=== PATIENT | male | born 1995 | race Caucasian/White ===

== ENCOUNTER 2021-01-24 15:11 | Emergency (ER) | payer BC, OTHER ==
--- OUTSIDE RECORDS SUMMARY | 2021-01-24 15:13 | XMS REPORT | Continuity of Care Document ---
:1995 Author Organization [facility] t Address [address] [place] [address] [address] [place] [address] Care Team Providers Name Role Phone Unavailable Unavailable Unavailable Problems This patient has no known problems. Allergies, Adverse Reactions, Alerts This patient has no known allergies or adverse reactions. Medications This patient has no known medications. Procedures This patient has no known procedures. Results This patient has no known results.
[2021-01-24] MEDS ORDERED: SMZ./TMP. 800/160 MG TABLET ONE (17:38)
[2021-01-24] MEDS ORDERED: DOXYCYCLINE 100 MG CAP PO ONE (17:38)
--- NOTE | 2021-01-24 17:45 | RAD REPORT ---
EXAM DESCRIPTION: US - Extremity Venous Uni Ltd - 01/24/2021 5:29 pm CLINICAL HISTORY: PAIN, right lower extremity COMPARISON: None. TECHNIQUE: Real-time sonographic evaluation of the right lower extremity deep venous systems was per formed. FINDINGS: Normal compressibility, flow augmentation, phasic flow and spontaneous flow are identified in the right lower extremity common femoral, superficial femoral, popliteal and posterior tibial vei ns. No intraluminal filling defects seen. IMPRESSION: No DVT in the right lower extremity.
--- NOTE | 2021-01-24 19:08 | ER ---
Nurse's Notes [facility] Name: Lei Godfrey Age: 26 yrs Sex: Male : 1995 Arrival Date: 01/24/2021 Time: 15:15 Bed 8 Private MD: Radha Mccoy K Diagnosis: Cellulitis of the thigh Presentation: 01/24 15:18 Chief complaint: Patient states: RLE redness, swelling for 3 days. No fever, hot to ll1 touch RLE. No drainage. States he went to [place] yesterday. Given a shot and antibiotics, states the site looks worse today. Coronavirus screen: Client denies travel out of the [place] in the last 14 days. At this time, the client does not indicate any symptoms associated with coronavirus-19. Ebola Screen: Patient denies travel to an Ebola-affected area in the 21 days before illness onset. Initial Sepsis Screen: Does the patient meet any 2 criteria? No. Patient's initial sepsis screen is negative. Does the patient have a suspected source of infection? Yes: Skin breakdown/wound. Risk Assessment: Do you want to hurt yourself or someone else? Patient reports no desire to harm self or others. Onset of symptoms was January 21, 2021. 15:18 Method Of Arrival: Ambulatory ll1 15:18 Acuity: SHAKIRA 3 ll1 Historical: - Allergies: 15:23 No Known Allergies; ll1 - PMHx: 15:23 None; ll1 - PSHx: 15:23 Adenoids; ll1 - Immunization history:: Last tetanus immunization: < 5 years ago Flu vaccine is not up to date. - Social history:: Smoking status: Patient denies any tobacco usage or history of. Smoking status: Reported history of juuling and/or vaping. Screenin:18 Abuse screen: Denies threats or abuse. Nutritional screening: No deficits noted. vg1 Tuberculosis screening: No symptoms or risk factors identified. Fall Risk No fall in past 12 months (0 pts). No secondary diagnosis (0 pts). No IV (0 pts). Ambulatory Aid- None/Bed Rest/Nurse Assist (0 pts). Gait- Normal/Bed Rest/Wheelchair (0 pts) Mental Status- Oriented to own ability (0 pts). Total Hallman Fall Scale indicates No Risk (0-24 pts). Assessment: 16:15 General: Appears in no apparent distress. comfortable, Behavior is cooperative, vg1 anxious. Pain: Complains of pain in lateral aspect of right calf and right knee Pain currently is 3 out of 10 on a pain scale. Neuro: Level of Consciousness is awake, alert, obeys commands, Oriented to person, place, time, situation. Cardiovascular: Capillary refill < 3 seconds. Respiratory: Airway is patent Respiratory effort is even, unlabored. GI: No signs and/or symptoms were reported involving the gastrointestinal system. : No signs and/or symptoms were reported regarding the genitourinary system. EENT: No signs and/or symptoms were reported regarding the EENT system. Derm: Skin is intact, Skin is red, Skin temperature is warm to Right knee and right calf. Musculoskeletal: Swelling present in lateral aspect of right calf and right knee. 17:25 Reassessment: Patient appears in no apparent distress at this time. No changes from vg1 previously documented assessment. Patient and/or family updated on plan of care and expected duration. Pain level reassessed. Patient is alert, oriented x 3, equal unlabored respirations, skin warm/dry/pink. 18:27 Reassessment: Patient appears in no apparent distress at this time. No changes from vg1 previously documented assessment. Patient and/or family updated on plan of care and expected duration. Pain level reassessed. Patient is alert, oriented x 3, equal unlabored respirations, skin warm/dry/pink. 19:04 Reassessment: Patient appears in no apparent distress at this time. Patient and/or jb4 family updated on plan of care and expected duration. Pain level reassessed. Patient is alert, oriented x 3, equal unlabored respirations, skin warm/dry/pink. Vital Signs: 15:18 BP 135 / 82; Pulse 80; Resp 16; Temp 98.3; Pulse Ox 100% on R/A; Weight 63.5 kg; Height ll1 5 ft. 9 in. (175.26 cm); Pain 3/10; 16:17 BP 128 / 88; Pulse 90; Resp 18; Pulse Ox 100% on R/A; vg1 17:25 BP 118 / 80; Pulse 90; Resp 16; Pulse Ox 100% on R/A; vg1 18:27 BP 113 / 78; Pulse 90; Resp 16; Pulse Ox 100% on R/A; vg1 15:18 Body Mass Index 20.67 (63.50 kg, 175.26 cm) ll1 ED Course: 15:15 Patient arrived in ED. mr 15:16 Radha Mccoy MD is Private Physician. mr 15:22 Triage completed. ll1 15:23 Arm band placed on. ll1 15:49 Bernarda Peres PA is PHCP. [facility] 15:49 Gage Cervantes MD is Attending Physician. jmm 16:09 Ailyn Daniel, RN is Primary Nurse. vg1 16:18 Patient has correct armband on for positive identification. Bed in low position. Call vg1 light in reach. Side rails up X 1. 17:33 US Extremity Venous Unilateral Ltd In Process Unspecified. EDMS 17:51 Ultrasound completed. Patient tolerated well. 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 sg3 19:16 No provider procedures requiring assistance completed. Patient did not have IV access jb4 during this emergency room visit. 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 Exp: rv 04/18/2022. Lot #: [id number]. } Route: IM; Site: left deltoid; 19:17 Follow up: Response: No adverse reaction jb4 Outcome: 19:07 Discharge ordered by . [facility] 19:16 Discharged to home ambulatory. jb4 19:16 Condition: stable 19:16 Discharge instructions given to patient, Instructed on discharge instructions, follow up and referral plans. medication usage, Demonstrated understanding of instructions, follow-up care, medications, Prescriptions given X 2. 19:18 Patient left the ED. jb4 Signatures: Dispatcher [employer] EDMS Bernarda Peres PA PA jmm Anshu Serene mr AntoineEmiliano, RN RN jb4 Sylvie Avalos sg3 Kaiden Barajas RN RN Ailyn Daniel, RN RN vg1 Evette Camacho RN RN ll1
--- NOTE | 2021-01-24 19:08 | EDPHYS ---
Physician Documentation [facility] Name: Lei Godfrey Age: 26 yrs Sex: Male : 1995 Arrival Date: 01/24/2021 Time: 15:15 Bed 8 Private MD: Radha Mccoy K ED Physician Gage Cervantes HPI: 01/24 19:01 This 26 yrs old Male presents to ER via Ambulatory with complaints of jmm Infected Tattoo. 19:01 The patient presents with pain. Onset: The symptoms/episode began/occurred gradually, 3 jmm day(s) ago. Modifying factors: The symptoms are alleviated by nothing. the symptoms are aggravated by nothing. This is a 26 year old male with no chronic medical conditions that presents to the ED with complaints of right lower leg pain beginning approx 3 days ago. Denies fever. Recent tattoo. Historical: - Allergies: 15:23 No Known Allergies; ll1 - PMHx: 15:23 None; ll1 - PSHx: 15:23 Adenoids; ll1 - Immunization history:: Last tetanus immunization: < 5 years ago Flu vaccine is not up to date. - Social history:: Smoking status: Patient denies any tobacco usage or history of. Smoking status: Reported history of juuling and/or vaping. ROS: 19:03 Constitutional: Negative for fever, chills, and weight loss, Eyes: Negative for injury, jmm pain, redness, and discharge, Cardiovascular: Negative for chest pain, palpitations, and edema, Respiratory: Negative for shortness of breath, cough, wheezing, and pleuritic chest pain. 19:03 Skin: Positive for erythema. 19:03 All other systems are negative. Exam: 19:03 Constitutional: This is a well developed, well nourished patient who is awake, alert, jmm and in no acute distress. Head/Face: atraumatic. Eyes: EOMI, no conjunctival erythema appreciated ENT: Moist Mucus Membranes Neck: Trachea midline, Supple Chest/axilla: Normal chest wall appearance and motion. Cardiovascular: Regular rate and rhythm. No edema appreciated Respiratory: Normal respirations, no respiratory distress appreciated Abdomen/GI: Non distended, soft Back: Normal ROM 19:03 Skin: erythema and induration noted to the right distal thigh to the right proximal lower leg. TTP. No purulent drainage. Non fluctuant. 19:03 Neuro: Orientation: is normal, Mentation: is normal, Memory: is normal. 19:03 Psych: Behavior/mood is pleasant, cooperative. Vital Signs: 15:18 BP 135 / 82; Pulse 80; Resp 16; Temp 98.3; Pulse Ox 100% on R/A; Weight 63.5 kg; Height ll1 5 ft. 9 in. (175.26 cm); Pain 3/10; 16:17 BP 128 / 88; Pulse 90; Resp 18; Pulse Ox 100% on R/A; vg1 17:25 BP 118 / 80; Pulse 90; Resp 16; Pulse Ox 100% on R/A; vg1 18:27 BP 113 / 78; Pulse 90; Resp 16; Pulse Ox 100% on R/A; vg1 15:18 Body Mass Index 20.67 (63.50 kg, 175.26 cm) ll1 MDM: 16:06 Patient medically screened. [facility] 19:04 Data reviewed: vital signs, nurses notes. Counseling: I had a detailed discussion with allison the patient and/or guardian regarding: the historical points, exam findings, and any diagnostic results supporting the discharge/admit diagnosis, radiology results, the need for outpatient follow up, to return to the emergency department if symptoms worsen or persist or if there are any questions or concerns that arise at home. ED course: Patient is alert and non toxic in appearance in the ED. No signs of sepsis. Patient understood and agrees with the plan of care. . 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 Exp: rv 04/18/2022. Lot #: [id number]. } Route: IM; Site: left deltoid; 19:17 Follow up: Response: No adverse reaction jb4 Disposition: 01/25 07:00 Co-signature as Attending Physician, Gage Cervantes MD I agree with the assessment and miguelina plan of care. Disposition: 01/24/21 19:07 Discharged to Home. Impression: Cellulitis of the thigh. - Condition is Stable. - Discharge Instructions: Cellulitis, Adult. - Prescriptions for Bactrim DS 800- 160 mg Oral Tablet - take 1 tablet by ORAL route every 12 hours for 10 days; 20 tablet. Doxycycline Monohydrate 100 mg Oral Tablet - take 1 tablet by ORAL route every 12 hours for 10 days; 20 tablet. - Medication Reconciliation Form, Thank You Letter, Antibiotic Education, Prescription Opioid Use form. - Follow up: Private Physician; When: 2 - 3 days; Reason: Recheck today's complaints, Continuance of care, Re-evaluation by your physician. Signatures: Dispatcher [employer] EDGage Roldan MD MD cha Mickail, Joel, PA PA jmm Bryson, James, RN RN jb4 Kaiden Barajas, RN RN Ailyn Campbell, RN RN vg1 Evette Camacho, RN RN ll1 Corrections: (The following items were deleted from the chart) 01/24 19:18 19:07 01/24/2021 19:07 Discharged to Home. Impression: Cellulitis of the thigh. jb4 Condition is Stable. Forms are Medication Reconciliation Form, Thank You Letter, Antibiotic Education, Prescription Opioid Use. Follow up: Private Physician; When: 2 - 3 days; Reason: Recheck today's complaints, Continuance of care, Re-evaluation by your physician. allison
[2021-01-24] MEDS ORDERED: TETANUS & DIPHTHERIA TOX,ADULT 0.5 ML VIAL ONE (19:22)
[2021-01-25 15:32] VITALS: TEMP 98.3; O2SAT 100
[2021-01-25 15:36] VITALS: BP 113/78
== END 2021-01-24 19:18 | disposition home or self-care (01) ==
LOC: ER 15:11
DX: L03.115 Cellulitis of right lower limb (principal); Z23 Encounter for immunization
CPT/HCPCS: 90471; 90714; 93971; 99283

== ENCOUNTER 2025-01-24 16:40 | Emergency (ER) | payer OTHER ==
--- OUTSIDE RECORDS SUMMARY | 2025-01-24 16:43 | XMS REPORT | Continuity of Care Document ---
Author Name Unknown Address [address] [place] [address] Organization [facility] [place] Address 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 Name Role Phone ELVIS MALAGON Attending Clinician Unavailable Payers Payer Name Policy Type Policy Number Effective Date Expirati on Date Source [facility] - OUT OF STATE [id number] 2014 00:00:00 Allergies, Adverse Reactions, Alerts Allergy Name Allergy Type Status Severity Reaction(s) Onset Date Inactive Date Treating Clinician Comments Source Hydrocod one Allergy to substanc e Active Nausea [facility] NO KNOWN ALLERGIE S Drug Class Active [facility] Social History Smoking Status Start Date Stop Date Source Never Smoker [facility] Vital Signs Vital Name Observation Time Observation Value Comments S ource Height 2025-01-15 00:00:00 69 [in_i] [facility] BP Diastolic 2025-01-15 00:00:00 68 mm[Hg] [facility] BMI (Body Mass Index) 2025-01-15 00:00:00 20.4 kg/m2 [facility] Body Weight 2025-01-15 00:00:00 2208 [oz_av] [facility] BP Systolic 2025-01-15 00:00:00 112 mm[Hg] [facility] Procedures Procedure Date / Time Performed Performing Clinician Source US, abdomen, complete 2025-01-15 00:00:00 [facility] Circumcision [facility] Remove Tonsils and Adenoids [facility] Extraction of [place] Tooth [facility] Encounters Start Date/Time End Date/Time Encounter Type Admission Type Attending Clinicians Care Facility Care Department Encounter ID Source 2025-01-15 00:00:00 2025-01-15 00:00:00 AJITH Stone: [address], [place] [address] , Ph. [phone] [facility], AJITH STONE [id number] [facility] 2020-12-24 16:40:00 2020-12-24 16:40:00 Outpatient Jenni [facility] [id number] [facility] 2020-12-24 16:40:00 2020-12-24 16:40:00 Outpatient ELVIS VALERIO [facility] [id number] [facility]
[2025-01-24 17:24] LABS: Absolute Eosinophils 0.2 K/uL (0-0.5); Absolute Lymphocytes (CBC) 1.2 K/uL (0.7-4.9); Absolute Monocytes 1.5 K/uL (0.1-1.3); Absolute Neutrophil 8.8 K/uL (1.8-8.0); Basophils % 0.3 % (0-1.3); Eosinophils % 1.5 % (0-4.4); Hematocrit 35.9 % (39.6-49.0); Hemoglobin 12.3 g/dL (13.6-17.9); Lymphocytes % 9.9 % (15.3-44.8); MCH 27.6 pg (27.0-35.0); MCHC 34.1 g/dL (32.0-36.0); MPV 6.4 fL (7.6-11.3); Monocytes % 12.8 % (3.3-12.3); Neutrophils % 75.5 % (41.7-73.7); Platelets 546 thou/uL (152-406); RBC Red Blood Cell Count 4.43 M/uL (4.33-5.43); Red Cell Distribution Width 13.4 % (12.1-15.2)
[2025-01-24 17:38] LABS: ALT/SGPT 15 U/L (16-61); Albumin 2.9 g/dL (3.4-5.0); Albumin/Globulin Ratio 0.6 (1.1-1.8); Alkaline Phosphatase 57 U/L (45-117); BUN Blood Urea Nitrogen 10 mg/dL (7-18); Bicarbonate 28 mEq/L (21-32); Bilirubin Total 0.4 mg/dL (0.2-1.0); Globulin 4.8 g/dL (2.3-3.5); Glomerular Filtration Rate 113 ml/min (=/>90); Glucose Level 109 mg/dL (74-106); Lipase 25 U/L (13-75); Protein, Total 7.7 g/dL (6.4-8.2); Sodium Level 134 mEq/L (136-145)
[2025-01-24 17:40] LABS: AST/SGOT < 10 U/L (15-37)
--- NOTE | 2025-01-24 17:55 | RAD REPORT ---
EXAMINATION: CT Abdomen Pelvis W Contrast CLINICAL INDICATION: Male, 30 years old. lower abd pain TECHNIQUE: CT abdomen and pelvis was performed, after the administration of IV contrast, as per [facility] protocol. Axial, sagittal and coronal reconstructions were obtained. One or more of the following dose reduction techniques were used: Automated exposure control, adjustment of the mA and k V according to patient size, and iterative reconstruction. Unless otherwise specified, incidental findings do not require dedicated imaging follow-up. COMPARISON: No prior exam. FINDINGS: LOWER CHEST: The visualized lung bases are clear. LIVER: Normal in size and contour. No focal lesion. BILIARY SYSTEM: No suspicious abnormalities. SPLEEN: Normal size. No focal lesion. PANCREAS: No mass, ductal dilation, or bisi-pancreatic fluid. ADRENALS: Normal; no mass. KIDNEYS: Normal size and contour. No hydronephrosis. URINARY BLADDER: Unremarkable. GASTROINTESTINAL TRACT: Segmental wall thickening along the terminal ileum with mucosal hyperenhancem ent and mild adjacent fat stranding. Segmental wall thickening along the distal transverse colon/hepatic flexure as well. No evidence of free air, significant intra-abdominal free fluid, bowel obstruction or abscess. APPENDIX: Normal appendix. LYMPH NODES: No lymphadenopathy. MUSCULOSKELETAL: No acute or suspicious osseous abnormality. ADDITIONAL FINDINGS: None. IMPRESSION: Segments of wall thickening and hyperenhancement involving the terminal ileum and distal transverse c olon, concerning for inflammatory bowel disease. Infectious enterocolitis is possible but considered less likely.
--- NOTE | 2025-01-24 18:01 | EDPHYS ---
Physician Documentation [facility] Name: Lei Godfrey Age: 30 yrs Sex: Male : 1995 Arrival Date: 01/24/2025 Time: 16:40 Bed IW1 Private MD: ED Physician Jesse Bonilla HPI: 01/24 17:10 This 30 yrs old Male presents to ER via Ambulatory with complaints of Abdominal Pain. rn 17:10 The patient presents with abdominal pain in the lower abdomen. Onset: The rn symptoms/episode began/occurred 3 week(s) ago. The symptoms do not radiate. Associated signs and symptoms: Pertinent positives: anorexia, Pertinent negatives: chest pain, fever. Modifying factors: The symptoms are alleviated by nothing, the symptoms are aggravated by nothing. The patient has not experienced similar symptoms in the past. Patient reports lower abdominal pain for 3 weeks. Associated with anorexia and slight weight loss. No blood in stool. No vomiting. Reports early satiety. Had abdominal ultrasound and H. pylori testing by PCP which were both negative. Referred to GI. Abdominal pain got worse today so came in for evaluation. No scrotal or inguinal swelling noted. No urinary symptoms. No known intestinal or stomach cancer in family. No previous abdominal surgeries.. Historical: - Allergies: 17:05 Hydrocodone-Acetaminophen; ld1 - Home Meds: 17:05 None [Active]; ld1 - PMHx: 17:05 None; ld1 - PSHx: 17:05 None; ld1 - Immunization history:: Adult Immunizations up to date. - Infectious Disease History:: Denies. - Social history:: Smoking status: Patient denies any tobacco usage or history of. - Family history:: not pertinent. - Hospitalizations: : No recent hospitalization is reported. ROS: 17:10 Constitutional: Negative for fever, chills, and weight loss, Cardiovascular: Negative rn for chest pain, palpitations, and edema, Respiratory: Negative for shortness of breath, cough, wheezing, and pleuritic chest pain, Abdomen/GI: Positive for lower abdominal pain MS/Extremity: Negative for injury and deformity, Skin: Negative for injury, rash, and discoloration, Neuro: Negative for headache, weakness, numbness, tingling, and seizure, Exam: 17:10 Constitutional: This is a well developed, well nourished patient who is awake, alert, rn and in no acute distress. Cardiovascular: Regular rate and rhythm. No pulse deficits. Respiratory: No increased work of breathing, no retractions or nasal flaring. Abdomen/GI: Soft, mild left lower quadrant and right lower quadrant tenderness. Neuro: Awake and alert, GCS 15 Vital Signs: 17:02 BP 133 / 85; Pulse 91; Resp 18; Temp 98.6(O); Pulse Ox 97% on R/A; Height 5 ft. 7 in. ; ld1 Pain 7/10; 17:06 Weight 60.78 kg; ld1 18:10 BP 129 / 79; Pulse 84; Resp 18; Pulse Ox 98% on R/A; ld1 17:02 Pain Scale: Adult ld1 MDM: 16:54 Medical Screening Exam initiated rn 18:00 Differential diagnosis: appendicitis, bowel obstruction, diverticulitis, gastritis, rn non-specific abd pain, pancreatitis, Peptic Ulcer Disease, Perf. Duodenal Ulcer, Perf. Gastric Ulcer, Enteritis, colitis, inflammatory bowel disease. Data reviewed: vital signs, nurses notes, lab test result(s), radiologic studies, CT scan, and as a result, I will discharge patient. Counseling: I had a detailed discussion with the patient and/or guardian regarding the historical points, exam findings, and any diagnostic results supporting the discharge/admit diagnosis, lab results, radiology results, the need for outpatient follow up, to return to the emergency department if symptoms worsen or persist or if there are any questions or concerns that arise at home. Special discussion: I discussed with the patient/guardian in detail that at this point there is no indication for admission to the hospital. It is understood, however, that if the symptoms persist or worsen the patient needs to return immediately for re-evaluation. Based on the history and exam findings, there is no indication for further emergent testing or inpatient evaluation. I discussed with the patient/guardian the need to see the service team leader for further evaluation of the symptoms. ED course: CT findings consistent with possible inflammatory bowel disease versus infectious enteritis. Will discharge home with antibiotics but patient already has GI follow-up, can benefit from colonoscopy and tissue diagnosis.. 01/24 17:08 Order name: CBC with Diff; Complete Time: 17:42 rn 01/24 17:08 Order name: CMP; Complete Time: 17:42 rn 01/24 17:08 Order name: Lipase; Complete Time: 17:42 rn 01/24 17:08 Order name: CT Abd/Pelvis - IV Contrast Only; Complete Time: 17:58 rn 01/24 17:08 Order name: IV Saline Lock; Complete Time: 17:11 rn 01/24 17:08 Order name: Labs collected and sent; Complete Time: 17:11 rn Administered Medications: 18:09 Drug: predniSONE PO 60 mg PO once Route: PO; ld1 18:10 Drug: Ciprofloxacin PO 500 mg PO once Route: PO; ld1 18:10 Drug: metroNIDAZOLE PO 500 mg PO once Route: PO; ld1 Disposition Summary: 01/24/25 18:01 Discharge Ordered Notes: Location: Home rn Problem: an ongoing problem rn Symptoms: have improved rn Condition: Stable rn Diagnosis - Infectious gastroenteritis and colitis, unspecified rn - Noninfective gastroenteritis and colitis, unspecified rn Followup: rn - With: Private Physician - When: As needed - Reason: Recheck today's complaints, Re-evaluation by your physician Discharge Instructions: - Discharge Summary Sheet rn - Abdominal Pain, Adult rn - Colonoscopy, Adult rn Forms: - Medication Reconciliation Form rn - 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 - Prescription Opioid Use rn - Patient Portal Instructions rn - Leadership Thank You Letter rn Prescriptions: - Flagyl 500 mg Oral Tablet - take 1 tablet ORAL route every 8 hours for 10 days; 30 tablet; Refills: 0, rn Product Selection Permitted - Cipro 500 mg Oral Tablet - take 1 tablet ORAL route every 12 hours for 7 days; 14 tablet; Refills: 0, rn Product Selection Permitted - Medrol (Earl) 4 mg Oral Tablets, Dose Pack - take 1 tablet ORAL route as directed - follow package instructions; 1 packet; rn Refills: 0, Product Selection Permitted Signatures: Dispatcher [employer] EDMS Jesse Bonilla MD MD rn Desiree Newberry RN RN ld1 Corrections: (The following items were deleted from the chart) 17:08 17:08 Abdomen Pelvis W Con+CT.RAD.BRZ ordered. EDMS EDMS 17:08 17:08 CBC+H.LAB.BRZ ordered. EDMS EDMS 17:08 17:08 COMPREHENSIVE METABOLIC PANEL+C.LAB.BRZ ordered. EDMS EDMS 17:08 17:08 LIPASE+C.LAB.BRZ ordered. EDMS EDMS
--- NOTE | 2025-01-24 18:01 | ER ---
Nurse's Notes [facility] Name: Lei Godfrey Age: 30 yrs Sex: Male : 1995 Arrival Date: 01/24/2025 Time: 16:40 Bed IW1 Private MD: Diagnosis: Infectious gastroenteritis and colitis, unspecified;Noninfective gastroenteritis and colitis, unspecified Presentation: 01/24 17:02 Chief complaint: Patient states: Lower abdominal pain X 3 weeks. Night sweats, ld1 decreased appetite, diarrhea. Coronavirus screen: At this time, the client does not indicate any symptoms associated with coronavirus-19. Ebola Screen: No symptoms or risks identified at this time. Initial Sepsis Screen: Does the patient meet any 2 criteria? No. Patient's initial sepsis screen is negative. Does the patient have a suspected source of infection? No. Patient's initial sepsis screen is negative. Risk Assessment: Do you want to hurt yourself or someone else? Patient reports no desire to harm self or others. Onset of symptoms was January 24, 2025 at 17:03. 17:02 Method Of Arrival: Ambulatory ld1 17:02 Acuity: SHAKIRA 3 ld1 Triage Assessment: 17:02 General: Appears in no apparent distress. comfortable, Behavior is calm, cooperative, ld1 appropriate for age. Pain: Complains of pain in right lower quadrant and left lower quadrant. Pain: Pain does not radiate. Pain currently is 7 out of 10 on a pain scale. Quality of pain is described as throbbing, Pain began suddenly, Is continuous. EENT:. EENT: No signs and/or symptoms were reported regarding the EENT system. Neuro: Level of Consciousness is awake, alert, obeys commands, Oriented to person, place, time, situation, Appropriate for age. Cardiovascular: Capillary refill < 3 seconds Patient's skin is warm and dry. Respiratory: Airway is patent Respiratory effort is even, unlabored. GI: Abdomen is flat, non-distended, Reports lower abdominal pain, bloating, nausea. : No signs and/or symptoms were reported regarding the genitourinary system. Derm: No signs and/or symptoms reported regarding the dermatologic system. Musculoskeletal: No signs and/or symptoms reported regarding the musculoskeletal system. Historical: - Allergies: 17:05 Hydrocodone-Acetaminophen; ld1 - Home Meds: 17:05 None [Active]; ld1 - PMHx: 17:05 None; ld1 - PSHx: 17:05 None; ld1 - Immunization history:: Adult Immunizations up to date. - Infectious Disease History:: Denies. - Social history:: Smoking status: Patient denies any tobacco usage or history of. - Family history:: not pertinent. - Hospitalizations: : No recent hospitalization is reported. Screenin:10 [facility] ED Fall Risk Assessment (Adult) History of falling in the last 3 months, ld1 including since admission No falls in past 3 months (0 pts) Confusion or Disorientation No (0 pts) Intoxicated or Sedated No (0 pts) Impaired Gait No (0 pts) Mobility Assist Device Used No (0 pt) Altered Elimination No (0 pt) Score/Fall Risk Level 0 - 2 = Low Risk Oriented to surroundings, Hourly rounding (assess needs \T\ fall precautionary measures) done. Abuse screen: Denies threats or abuse. Denies injuries from another. Nutritional screening: No deficits noted. Tuberculosis screening: No symptoms or risk factors identified. Assessment: 18:10 Reassessment: Patient appears in no apparent distress at this time. No changes from ld1 previously documented assessment. Patient and/or family updated on plan of care and expected duration. Pain level reassessed. See triage assessment. Vital Signs: 17:02 BP 133 / 85; Pulse 91; Resp 18; Temp 98.6(O); Pulse Ox 97% on R/A; Height 5 ft. 7 in. ; ld1 Pain 7/10; 17:06 Weight 60.78 kg; ld1 18:10 BP 129 / 79; Pulse 84; Resp 18; Pulse Ox 98% on R/A; ld1 17:02 Pain Scale: Adult ld1 ED Course: 16:43 Patient arrived in ED. mr 16:54 Jesse Bonilla MD is Attending Physician. rn 17:02 Arm band placed on right wrist. ld1 17:03 Triage completed. ld1 17:11 Inserted saline lock: 22 gauge in right antecubital area, using aseptic technique. ld1 Blood collected. Flushed with 10 mL NS. 17:37 CT Abd/Pelvis - IV Contrast Only In Process Unspecified. EDMS 18:10 Patient has correct armband on for positive identification. Placed in gown. Bed in low ld1 position. Call light in reach. Side rails up X2. Pulse ox on. NIBP on. Door closed. Noise minimized. Warm blanket given. 18:10 No provider procedures requiring assistance completed. IV discontinued, intact, ld1 bleeding controlled, No redness/swelling at site. 18:12 Desiree Newberry, RN is Primary Nurse. ld1 Administered Medications: 18:09 Drug: predniSONE PO 60 mg PO once Route: PO; ld1 18:10 Drug: Ciprofloxacin PO 500 mg PO once Route: PO; ld1 18:10 Drug: metroNIDAZOLE PO 500 mg PO once Route: PO; ld1 Medication: 18:10 VIS not applicable for this client. ld1 Outcome: 18:01 Discharge ordered by . rn 18:12 Discharged to home ambulatory, ld1 18:12 Condition: stable 18:12 Discharge instructions given to patient, Instructed on discharge instructions, follow up and referral plans. medication usage, Demonstrated understanding of instructions, follow-up care, medications, Prescriptions given X 3, 18:12 Patient left the ED. ld1 Signatures: Dispatcher [employer] EDMA Serene Brasher, Reg Reg mr Jesse Bonilla MD MD rn Sims, Lauren, RN RN ld1
[2025-01-24] MEDS ORDERED: metroNIDAZOLE 500 MG TABLET ONE (18:06)
[2025-01-24] MEDS ORDERED: CIPROFLOXACIN HCL 500 MG TAB ONE (18:06)
[2025-01-24] MEDS ORDERED: predniSONE 20 MG TAB ONE (18:06)
[2025-01-24 18:29] VITALS: TEMP 98.6
[2025-01-24 18:35] VITALS: BP 129/79; O2SAT 98
== END 2025-01-24 18:12 | disposition home or self-care (01) ==
LOC: ER 16:40
DX: A09 Infectious gastroenteritis and colitis, unspecified (principal)
CPT/HCPCS: 85025; 36415; 83690; 80053; 74177; 99284; Q9967; J7512